=== PATIENT | male | born 1975 | race African-American/Black ===

== ENCOUNTER 2019-03-28 20:23 | Inpatient (IN) ==
[2019-03-28] MEDS ORDERED: SODIUM CHLORIDE 0.9% 1,000 ML IV STA ×2 (21:56→23:27)
[2019-03-28] MEDS ORDERED: PANTOPRAZOLE 40 MG VIAL IV STA (21:56)
[2019-03-28] MEDS ORDERED: METOCLOPRAMIDE 10 MG/2 ML VIAL IV STA (21:58)
[2019-03-28] MEDS ORDERED: DICYCLOMINE 20 MG/2 ML AMP IM ONE (21:58)
[2019-03-28] MEDS ORDERED: ALUM/MAG/SIMETH/LIDO VISC 1:1 30 ML BOTTLE PO ONE (22:48)
[2019-03-28 22:50] LABS: Basophils % 0.4 % (0.0-0.8); Eosinophils # 0.1 10*3/uL (0.0-0.87); Eosinophils % 0.8 % (0.00-10.9); Hematocrit 40.6 VOL% (42.0-52.0); Hemoglobin 13.5 GM/DL (14.0-18.0); Immature Granulocytes % 0.1 %; Immature Granulocytes Absolute 0.01 #; Lymphocytes # 2.6 10*3/uL (1.4-4.0); Mean Corpuscular HGB Conc 33.3 GM/DL (32-36); Mean Corpuscular Volume 91.4 FL (87-102); Mean Platelet Volume 9.1 FL (9.6-12.0); Monocytes % 6.2 % (1.7-12.7); Neutrophils % 56.5 % (38.7-73.9); Platelet Count 266 T/CUMM (130-400); Red Blood Count 4.44 MC/CUMM (3.8-5.5); Red Cell Distribution Width 13.4 % (9.3-17.3); White Blood Count 7.1 T/CUMM (4-12)
[2019-03-28 23:11] LABS: Alanine Aminotransferase 23 U/L (16-61); Albumin 3.7 G/DL (3.4-5.0); Alkaline Phosphatase 60 U/L (45-117); Aspartate Amino Transferase 44 U/L (0-37); Blood Urea Nitrogen 10 MG/DL (7-18); Calcium 8.8 MG/DL (8.5-10.1); Estimated Glom Filtration Rate 147 ML/MIN; Glucose 132 MG/DL (74-106); Osmolality,Calculated 275.7 MOS/KG (273-304); Total Protein 7.1 G/DL (6.4-8.3); Troponin I < 0.015 NG/ML (0.00-0.045)
[2019-03-28] MEDS ORDERED: guaiFENesin/DM ER 600-30 MG TABLET PO PRN (23:36)
[2019-03-28] MEDS ORDERED: hydrALAZINE 20 MG/1 ML VIAL IV PRN (23:36)
[2019-03-28] MEDS ORDERED: ZALEPLON 5 MG CAPSULE PO PRN (23:36)
[2019-03-28] MEDS ORDERED: ACETAMINOPHEN 325 MG TABLET PO PRN (23:36)
[2019-03-28] MEDS ORDERED: ALBUTEROL 2.5 MG/3 ML NEB RESP TX PRN (23:36)
[2019-03-28] MEDS ORDERED: ONDANSETRON 4 MG/2 ML VIAL IV PRN (23:36)
[2019-03-28] MEDS ORDERED: MORPHINE 4 MG/1 ML VIAL IV PRN (23:36)
[2019-03-28] MEDS ORDERED: DOCUSATE SODIUM 100 MG CAPSULE PO PRN (23:36)
[2019-03-28] MEDS ORDERED: NICOTINE 21 MG/24 HR PATCH TRANSDERM PRN (23:36)
[2019-03-29] MEDS ORDERED: THIAMINE INJ 100 MG, FOLIC ACID INJ 1 MG, MULTIVITAMIN INJ 10 ML in DEXTROSE 5% NACL 0.... IV ONE (00:30)
[2019-03-29] MEDS ORDERED: INFLUENZA VIRUS VACCINE 0.5 ML SYRINGE IM ONE (03:15)
[2019-03-29 05:01] LABS: Basophils % 0.6 % (0.0-0.8); Eosinophils # 0.1 10*3/uL (0.0-0.87); Eosinophils % 1.7 % (0.00-10.9); Hematocrit 36.5 VOL% (42.0-52.0); Hemoglobin 11.9 GM/DL (14.0-18.0); Immature Granulocytes % 0.2 %; Immature Granulocytes Absolute 0.01 #; Lymphocytes # 2.3 10*3/uL (1.4-4.0); Lymphocytes % 42.5 % (21.2-54.2); Mean Corpuscular HGB Conc 32.6 GM/DL (32-36); Mean Corpuscular Volume 91.7 FL (87-102); Mean Platelet Volume 9.1 FL (9.6-12.0); Monocytes % 7.8 % (1.7-12.7); Neutrophils % 47.2 % (38.7-73.9); Platelet Count 233 T/CUMM (130-400); Red Blood Count 3.98 MC/CUMM (3.8-5.5); Red Cell Distribution Width 13.4 % (9.3-17.3); White Blood Count 5.3 T/CUMM (4-12)
[2019-03-29 05:39] LABS: Albumin 3.1 G/DL (3.4-5.0); Bilirubin,Total 0.9 MG/DL (0.2-1.0); Osmolality,Calculated 280.1 MOS/KG (273-304); Risk Ratio 1.7; Total Protein 5.8 G/DL (6.4-8.3)
[2019-03-29] MEDS ORDERED: DEXTROSE 10% 250 ML BAG IV ONE (06:00)
[2019-03-29] MEDS: ENOXAPARIN 40 MG/0.4 ML SYRINGE SUBCUT SCH (08:48)
[2019-03-29] MEDS: MULTIVITAMIN (CENTRUM) TABLET PO SCH (08:48)
[2019-03-29] MEDS: FOLIC ACID 1 MG TABLET PO SCH (08:48)
[2019-03-29] MEDS: THIAMINE 100 MG TABLET PO SCH (08:48)
[2019-03-29] MEDS: PANTOPRAZOLE 40 MG VIAL IV SCH (08:49)
[2019-03-29] MEDS: NICOTINE 21 MG/24 HR PATCH TRANSDERM SCH (08:49)
[2019-03-29] MEDS: LACTATED RINGERS 1,000 ML IV SCH (09:54)
[2019-03-30] MEDS: LACTATED RINGERS 1,000 ML IV SCH ×2 (03:17→08:51)
[2019-03-30 06:06] LABS: Basophils % 0.2 % (0.0-0.8); Eosinophils # 0.1 10*3/uL (0.0-0.87); Eosinophils % 1.1 % (0.00-10.9); Hemoglobin 11.6 GM/DL (14.0-18.0); Immature Granulocytes % 0.3 %; Immature Granulocytes Absolute 0.02 #; Lymphocytes # 1.9 10*3/uL (1.4-4.0); Lymphocytes % 28.9 % (21.2-54.2); Mean Corpuscular HGB Conc 32.2 GM/DL (32-36); Mean Corpuscular Volume 93.8 FL (87-102); Mean Platelet Volume 9.2 FL (9.6-12.0); Monocytes % 9.7 % (1.7-12.7); Neutrophils % 59.8 % (38.7-73.9); Platelet Count 213 T/CUMM (130-400); Red Blood Count 3.84 MC/CUMM (3.8-5.5); Red Cell Distribution Width 13.2 % (9.3-17.3); White Blood Count 6.5 T/CUMM (4-12)
[2019-03-30 06:27] LABS: Calcium 8.5 MG/DL (8.5-10.1); Osmolality,Calculated 273.5 MOS/KG (273-304)
[2019-03-30 07:45] VITALS: BP 106/62
[2019-03-30] MEDS: FOLIC ACID 1 MG TABLET PO SCH (08:49)
[2019-03-30] MEDS: THIAMINE 100 MG TABLET PO SCH (08:49)
[2019-03-30] MEDS: MULTIVITAMIN (CENTRUM) TABLET PO SCH (08:49)
[2019-03-30] MEDS: ENOXAPARIN 40 MG/0.4 ML SYRINGE SUBCUT SCH (08:49)
[2019-03-30] MEDS: NICOTINE 21 MG/24 HR PATCH TRANSDERM SCH (08:50)
[2019-03-30] MEDS: PANTOPRAZOLE 40 MG VIAL IV SCH (08:51)
== END 2019-03-30 12:43 | disposition home or self-care (01) | DRG 392 ==
LOC: N.ED 20:23 → SUATTDRO 23:36 → N.EDINP 23:36 → N.5E 03-29 00:30
PROVIDERS: ADMIT Internal Medicine; ATTEND Emergency Medicine

== ENCOUNTER 2019-04-09 21:15 | Observation (INO) ==
[2019-04-09] MEDS ORDERED: KETOROLAC 30 MG/1 ML VIAL IV STA (21:37)
[2019-04-09] MEDS ORDERED: ONDANSETRON 4 MG/2 ML VIAL IV STA (21:37)
[2019-04-09] MEDS ORDERED: SODIUM CHLORIDE 0.9% 1,000 ML IV STA (21:37)
[2019-04-09 22:15] LABS: Basophils % 0.2 % (0.0-0.8); Eosinophils % 0.5 % (0.00-10.9); Hematocrit 39.3 VOL% (42.0-52.0); Hemoglobin 12.7 GM/DL (14.0-18.0); Immature Granulocytes % 0.3 %; Immature Granulocytes Absolute 0.02 #; Lymphocytes # 2.7 10*3/uL (1.4-4.0); Lymphocytes % 42.8 % (21.2-54.2); Mean Corpuscular HGB Conc 32.3 GM/DL (32-36); Mean Corpuscular Volume 93.1 FL (87-102); Mean Platelet Volume 8.6 FL (9.6-12.0); Monocytes % 7.2 % (1.7-12.7); Platelet Count 341 T/CUMM (130-400); Red Blood Count 4.22 MC/CUMM (3.8-5.5); Red Cell Distribution Width 15.1 % (9.3-17.3); White Blood Count 6.2 T/CUMM (4-12)
[2019-04-09 22:23] LABS: Apearance,Urine CLEAR (Clear); Bilirubin,Urine Negative (Negative); Blood, Urine Small mg/dL (Negative); Glucose,Urine (UA) Negative (Negative); Ketones,Urine Negative (Negative); Mucus,Urine Occasional /LPF (Occasional); Nitrite,Urine Negative (Negative); Protein,Urine 30 MG/DL; RBC,Urine <1 /HPF (0-4); Squamous Epithelial Cell,Urine Occasional /HPF (0-10); Urine Color Yellow (Yellow); WBC,Urine 5 /HPF (0-6)
[2019-04-09 22:35] LABS: Albumin 3.8 G/DL (3.4-5.0); Barbiturates Screen,Urine Negative (Negative); Benzodiazepines Screen,Urine Negative (Negative); Bilirubin,Total 1.2 MG/DL (0.2-1.0); Calcium 8.8 MG/DL (8.5-10.1); Cannabinoid Screen,Urine Negative (Negative); Opiate Screen,Urine Negative (Negative); Osmolality,Calculated 274.5 MOS/KG (273-304); Phencyclidine Screen,Urine Negative (Negative); Total Protein 7.8 G/DL (6.4-8.3)
[2019-04-09] MEDS ORDERED: SODIUM CHLORIDE 0.9% 2,000 ML IV STA (22:44)
[2019-04-09] MEDS ORDERED: MORPHINE 4 MG/1 ML VIAL IV PRN (23:11)
[2019-04-10] MEDS ORDERED: ALBUTEROL 2.5 MG/3 ML NEB RESP TX PRN (00:41)
[2019-04-10] MEDS ORDERED: ACETAMINOPHEN 325 MG TABLET PO PRN (00:41)
[2019-04-10] MEDS ORDERED: hydrALAZINE 20 MG/1 ML VIAL IV PRN (00:41)
[2019-04-10] MEDS ORDERED: ONDANSETRON 4 MG/2 ML VIAL IV PRN (00:41)
[2019-04-10] MEDS ORDERED: DOCUSATE SODIUM 100 MG CAPSULE PO PRN (00:41)
[2019-04-10] MEDS: THIAMINE INJ 100 MG, FOLIC ACID INJ 1 MG, MULTIVITAMIN INJ 10 ML in DEXTROSE 5% NACL 0.... IV SCH (03:50)
[2019-04-10 05:22] LABS: Basophils % 0.2 % (0.0-0.8); Eosinophils % 0.9 % (0.00-10.9); Hemoglobin 10.6 GM/DL (14.0-18.0); Immature Granulocytes % 0.2 %; Immature Granulocytes Absolute 0.01 #; Lymphocytes # 1.9 10*3/uL (1.4-4.0); Lymphocytes % 44.3 % (21.2-54.2); Mean Corpuscular HGB Conc 33.1 GM/DL (32-36); Mean Corpuscular Volume 91.7 FL (87-102); Mean Platelet Volume 8.8 FL (9.6-12.0); Monocytes % 8.5 % (1.7-12.7); Neutrophils % 45.9 % (38.7-73.9); Platelet Count 257 T/CUMM (130-400); Red Blood Count 3.49 MC/CUMM (3.8-5.5); Red Cell Distribution Width 15.2 % (9.3-17.3); White Blood Count 4.4 T/CUMM (4-12)
[2019-04-10 05:41] LABS: Albumin 2.9 G/DL (3.4-5.0); Bilirubin,Total 0.7 MG/DL (0.2-1.0); Calcium 7.5 MG/DL (8.5-10.1); Osmolality,Calculated 280.1 MOS/KG (273-304); Total Protein 5.9 G/DL (6.4-8.3)
[2019-04-10] MEDS ORDERED: LORazepam 2 MG/1 ML VIAL IV ONE (09:37)
[2019-04-10] MEDS: MULTIVITAMIN (CENTRUM) TABLET PO SCH (14:17)
[2019-04-10] MEDS: chlordiazePOXIDE 10 MG CAPSULE PO SCH ×3 (14:17→20:52)
[2019-04-10] MEDS: FOLIC ACID 1 MG TABLET PO SCH ×2 (14:18→20:52)
[2019-04-10] MEDS: PANTOPRAZOLE 40 MG TABLET PO SCH (14:18)
[2019-04-10] MEDS: THIAMINE 100 MG TABLET PO SCH ×2 (14:20→20:52)
[2019-04-11] MEDS: THIAMINE INJ 100 MG, FOLIC ACID INJ 1 MG, MULTIVITAMIN INJ 10 ML in DEXTROSE 5% NACL 0.... IV SCH (03:25)
[2019-04-11 08:27] LABS: Basophils % 0.3 % (0.0-0.8); Eosinophils % 0.7 % (0.00-10.9); Hematocrit 35.5 VOL% (42.0-52.0); Hemoglobin 11.3 GM/DL (14.0-18.0); Immature Granulocytes % 0.5 %; Immature Granulocytes Absolute 0.03 #; Lymphocytes # 1.4 10*3/uL (1.4-4.0); Lymphocytes % 22.7 % (21.2-54.2); Mean Corpuscular HGB Conc 31.8 GM/DL (32-36); Mean Corpuscular Volume 93.9 FL (87-102); Mean Platelet Volume 8.6 FL (9.6-12.0); Monocytes % 9.1 % (1.7-12.7); Neutrophils % 66.7 % (38.7-73.9); Platelet Count 237 T/CUMM (130-400); Red Blood Count 3.78 MC/CUMM (3.8-5.5); Red Cell Distribution Width 14.6 % (9.3-17.3)
[2019-04-11] MEDS: chlordiazePOXIDE 10 MG CAPSULE PO SCH ×3 (09:11→21:14)
[2019-04-11] MEDS: FOLIC ACID 1 MG TABLET PO SCH ×2 (09:13→21:14)
[2019-04-11] MEDS: MULTIVITAMIN (CENTRUM) TABLET PO SCH (09:13)
[2019-04-11] MEDS: PANTOPRAZOLE 40 MG TABLET PO SCH (09:13)
[2019-04-11] MEDS: THIAMINE 100 MG TABLET PO SCH ×2 (09:13→21:14)
[2019-04-11] MEDS ORDERED: MAGNESIUM HYDROXIDE SUSP 30 ML UDCUP PO PRN (10:50)
[2019-04-11 11:07] LABS: Albumin 2.7 G/DL (3.4-5.0); Bilirubin,Total 0.8 MG/DL (0.2-1.0); Osmolality,Calculated 279.8 MOS/KG (273-304); Total Protein 5.8 G/DL (6.4-8.3)
[2019-04-11] MEDS ORDERED: POLYETHYLENE GLYCOL POWDER 17 GM PACK PO ONE (14:32)
[2019-04-12] MEDS: FOLIC ACID 1 MG TABLET PO SCH (09:44)
[2019-04-12] MEDS: THIAMINE 100 MG TABLET PO SCH (09:44)
[2019-04-12] MEDS: MULTIVITAMIN (CENTRUM) TABLET PO SCH (09:44)
[2019-04-12] MEDS: PANTOPRAZOLE 40 MG TABLET PO SCH (09:44)
[2019-04-12] MEDS: chlordiazePOXIDE 10 MG CAPSULE PO SCH (09:45)
[2019-04-12 11:38] LABS: Troponin I < 0.015 NG/ML (0.00-0.045)
[2019-04-12] MEDS ORDERED: ASPIRIN 325 MG TABLET PO ONE (11:55)
[2019-04-12 12:43] VITALS: BP 127/68
[2019-04-12] MEDS: THIAMINE INJ 100 MG, FOLIC ACID INJ 1 MG, MULTIVITAMIN INJ 10 ML in DEXTROSE 5% NACL 0.... IV SCH (13:29)
[2019-04-12 13:47] LABS: Troponin I < 0.015 NG/ML (0.00-0.045)
== END 2019-04-12 14:24 | disposition home or self-care (01) ==
LOC: N.ED 21:15 → N.EDINP 21:15 → SUATTDRO 04-10 00:41 → N.2W 04-10 01:29
PROVIDERS: ADMIT Internal Medicine; ATTEND Family Medicine